=== PATIENT | female | born 1955 | race Caucasian/White ===

== ENCOUNTER → 2021-07-27 | Outpatient (CLI) | payer MEDICARE, OTHER | LOC: EXRD 08:00 | DX: N18.9 Chronic kidney disease, unspecified (principal) | CPT/HCPCS: 93975 ==

== ENCOUNTER 2021-10-01 23:42 | Emergency (ER) | payer MEDICARE, OTHER ==
[2021-10-02] MEDS ORDERED: LODINE CAP 300300 MG PO (01:50)
== END 2021-10-02 02:09 | disposition home or self-care (01) ==
LOC: ER1 23:42
DX: S52.592A Other fractures of lower end of left radius, initial encounter for closed fracture (principal); N18.9 Chronic kidney disease, unspecified; W00.0XXA Fall on same level due to ice and snow, initial encounter; Y92.009 Unspecified place in unspecified non-institutional (private) residence as the place of occurrence of the external cause; Z88.1 Allergy status to other antibiotic agents
CPT/HCPCS: 29125; 73110; 99283